=== PATIENT | female | born 2005 | race Caucasian/White ===

== ENCOUNTER 2025-01-22 16:36 | Outpatient (CLI) | payer BC, SELFPAY ==
[2025-01-22 17:20] LABS: Basophils # 0.1 K/mm3 (0-0.2); Basophils % 0.3 % (0.1-2.0); Eosinophils # 0.2 K/mm3 (0.0-0.4); Hematocrit 41.9 % (37.0-47.0); Hemoglobin 14.6 g/dL (12.2-16.2); Lymphocytes # 2.7 K/mm3 (0.7-4.5); Lymphocytes % 14.9 % (10-50); Mean Corpuscular HGB Conc 34.8 g/dL (31.8-35.4); Mean Corpuscular Hemoglobin 29.4 pg (27.0-31.2); Mean Corpuscular Volume 84.5 fl (81-99); Mean Platelet Volume 9.2 fl (7.4-10.4); Monocytes % 5.3 % (1.7-9.3); Neutrophils % 78.2 % (37.0-80.0); Platelet Count 321 K/mm3 (142-424); Red Blood Count 4.96 M/mm3 (4.20-5.40); Red Cell Distribution Width 11.3 % (11.5-17.5); White Blood Count 17.9 K/mm3 (4.5-13.0)
[2025-01-22 17:32] LABS: MANUAL DIFFERENTIAL MANUAL DIFFERENTIAL (MANUAL DIFF)
[2025-01-22 18:15] LABS: Eosinophils % 1 % (0-3); Lymphocytes % 19 % (10-50); Monocytes % 3 % (2-9); Neutrophils % 77 % (42-76); Total Cells Counted 100
[2025-01-22 18:16] LABS: Platelet Estimate Normal; RBC Morphology Normal
[2025-01-22 18:35] LABS: Hepatitis C Ab Qual. W/ RFX NEGATIVE (Negative)
[2025-01-22 22:34] LABS: HIV Combo NEGATIVE (Negative)
[2025-01-24 07:23] LABS: Hepatitis B Surface Antigen Negative (Negative); Rubella Antibodies, IgG <0.90 index (Immune >0.99)
[2025-01-24 12:40] LABS: RPR W/RFX Titers Nonreactive (Nonreactive)
[2025-01-27 03:36] LABS: Neisseria gonorrhoeae, NAA Negative (Negative)
== END 2025-01-22 23:59 | disposition home or self-care (01) ==
LOC: LAB 16:38
PROVIDERS: Visit Provider Obstetrics & Gynecology
DX: Z34.01 Encounter for supervision of normal first pregnancy, first trimester (principal)
CPT/HCPCS: 85007; 85025; 85027; 86592; 86762; 86803; 86850; 87340; 87389; 87491; 87591